=== PATIENT | female | born 1995 | race Two or more races ===

== ENCOUNTER 2017-02-25 10:01 | Emergency (ER) | payer OTHER ==
[~2017-02-25] VITALS: Ht 170.2 cm; Wt 54.9 kg
--- NOTE | 2017-02-25 10:10 | NUR ---
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 [employer] OFFICERS AT BS. SEEN BY MD FOR EVAL. SAFETY AND COMFORT MEASURES PROVIDED. WILL MONITOR.
--- NOTE | 2017-02-25 10:20 | NUR ---
PT REFUSES TO GIVE URINE SAMPLE AT THIS TIME.
[2017-02-25 10:25] LABS: BASOPHILS # (AUTO) 0.1 /CMM (0.0-0.2); BASOPHILS % (AUTO) 0.8 % (0.0-2.0); EOSINOPHILS # (AUTO) 0.2 /CMM (0.0-0.7); EOSINOPHILS % (AUTO) 1.8 % (0.0-6.0); HEMATOCRIT 29 % (33-45); HEMOGLOBIN 9.8 g/dL (11.5-14.8); LYMPHOCYTES % (AUTO) 20.2 % (20.0-44.0); MEAN CORPUSCULAR HEMOGLOBIN 31 PG (26.0-33.0); MEAN CORPUSCULAR HGB CONC 35 g/dl (31.0-36.0); MEAN CORPUSCULAR VOLUME 91 fL (82-100); MONOCYTES # (AUTO) 0.6 /CMM (0.1-1.30); MONOCYTES % (AUTO) 6.1 % (2.0-12.0); NEUTROPHILS # (AUTO) 7.2 /CMM (1.8-8.9); NEUTROPHILS % (AUTO) 71.1 % (43.0-81.0); PLATELET COUNT (AUTO) 295 /CMM (150-450); RDW COEFFICIENT OF VARIATION 12.6 (11.5-15.0); RED BLOOD CELL COUNT(AUTO) 3.13 MIL/uL (4.0-5.2); WHITE BLOOD COUNT (AUTO) 10.1 K/uL (4.3-11.0)
[2017-02-25 10:34] LABS: CALCIUM, SERUM 8.2 mg/dL (8.5-10.1); CREATININE 0.6 mg/dL (0.6-1.3)
[2017-02-25 10:39] LABS: INR 0.97 (0.87-1.13); PROTHROMBIN TIME 10.1 SECS (9.5-12.7)
[2017-02-25 10:40] LABS: ALBUMIN 2.9 g/dL (3.4-5.0); BILIRUBIN,DIRECT 0.1 mg/dL (0.0-0.2); BILIRUBIN,TOTAL 0.2 mg/dL (0.2-1.0)
--- NOTE | 2017-02-25 12:20 | NUR ---
AT FOR PE.
--- NOTE | 2017-02-25 12:48 | NUR ---
CALLED DR BLAS , ON THE PHONE WITH DR VARGAS.
[2017-02-25 14:38] LABS: HEMOGLOBIN 8.1 g/dL (11.5-14.8)
--- NOTE | 2017-02-25 15:15 | NUR ---
ALS SET UP FOR 1715 P/U [facility] TRIP #[id number]
--- NOTE | 2017-02-25 16:00 | NUR ---
Patient is resting comfortably in bed with eyes closed. Easily aroused. VSS
--- NOTE | 2017-02-25 16:58 | NUR ---
BLOOD TRANSFUSION INITIATED. VERIFIED WITH ELSIE PATRICK.
--- NOTE | 2017-02-25 18:12 | NUR ---
BLOOD TRANSFUSION WELL TOLERATED. VSS. REPORT GIVEN TO [facility] STAFF FOR TRANSPORT.
[2017-02-25 18:13] VITALS: BP 97/51
== END 2017-02-25 18:32 | disposition short-term general hospital (02) ==
LOC: ER 10:03
DX: O03.4 Incomplete spontaneous abortion without complication (principal); F17.200 Nicotine dependence, unspecified, uncomplicated; I95.9 Hypotension, unspecified
CPT/HCPCS: 36415; 76856-TC; 80048-TC; 80076-TC; 84702-TC; 84703-TC; 85025-TC; 85027-TC; 85730-TC; 86850-TC; 86921-TC; A4606; J2590; J7030; J7050; P9016-BL; Z7610